=== PATIENT | male | born 1990 | race Two or more races ===

== ENCOUNTER 2018-02-22 14:39 | Outpatient (CLI) | payer OTHER | END 2018-02-22 14:40 | disposition home or self-care (01) | LOC: SC 14:39 | PROVIDERS: ATTEND Internal Medicine Pulmonary Disease | DX: G47.30 Sleep apnea, unspecified (principal); R06.83 Snoring; G47.10 Hypersomnia, unspecified; G47.8 Other sleep disorders | CPT/HCPCS: 99203; 99212 ==

== ENCOUNTER 2018-04-10 20:24 | Outpatient (CLI) | payer OTHER | END 2018-04-10 20:25 | disposition home or self-care (01) | LOC: SC 20:24 | PROVIDERS: ATTEND Internal Medicine Pulmonary Disease | DX: G47.30 Sleep apnea, unspecified (principal) | CPT/HCPCS: 95810 ==

== ENCOUNTER 2018-05-09 09:12 | Outpatient (CLI) | payer OTHER | END 2018-05-09 09:13 | disposition home or self-care (01) | LOC: SC 09:12 | PROVIDERS: ATTEND Nurse Practitioner Family | DX: R06.83 Snoring (principal); G47.00 Insomnia, unspecified | CPT/HCPCS: 99212; 99214 ==